=== PATIENT | female | born 1985 | race Caucasian/White ===

== ENCOUNTER 2023-02-24 10:56 | Emergency (ER) | payer BC ==
[~2023-02-24] VITALS: Ht 165 cm; Wt 205.0 kg
--- NOTE | 2023-02-24 11:13 | ED Fall/Injury ---
General Stated Complaint: RT LEG PAIN/FELL Source: patient Exam Limitations: no limitations History of Present Illness Date Seen by Provider: Feb 24, 2023 Time Seen by Provider: 10:59 Initial Comments 37-year-old female with history of congestive heart failure presents to the emergency department today for right leg and left hand pain. She was walking and fell into a manhole that was uncovered. She states her right leg went completely down into it. She denies hitting her head or losing consciousness. She has pain just distal to her right knee and has some problems bearing weight secondary to pain. She also feels like she "jammed" her left ring finger. She is not on any blood thinning medications. No other injuries. All other systems reviewed and negative except documented per HPI. Voice recognition software was used to help create this chart Allergies and Home Medications Allergies Coded Allergies: hydromorphone (Verified Allergy, Unknown, 02/24/23) levofloxacin (Verified Allergy, Unknown, 02/24/23) Patient Home Medication List Home Medication List Reviewed: Yes Cyclobenzaprine HCl (Cyclobenzaprine HCl) 5 Mg Tablet, (Reported) Entered as Reported by: HAILE MEJIA on 02/24/231125 Last Action: New Order Escitalopram Oxalate (Escitalopram Oxalate) 20 Mg Tablet, (Reported) Entered as Reported by: HAILE MEJIA on 02/24/231125 Last Action: New Order Metoprolol Succinate (Metoprolol Succinate) 100 Mg Tab.er.24h, (Reported) Entered as Reported by: HAILE MEJIA on 02/24/231125 Last Action: New Order Sacubitril/Valsartan (Entresto 49 mg-51 mg Tablet) 49 Mg-51 Mg Tablet, (Reported) Entered as Reported by: HAILE MEJIA on 02/24/231125 Last Action: New Order Spironolactone (Spironolactone) 25 Mg Tablet, (Reported) Entered as Reported by: HAILE MEJIA on 02/24/231125 Last Action: New Order Torsemide (Torsemide) 20 Mg Tablet, (Reported) Entered as Reported by: HAILE MEJIA on 02/24/231125 Last Action: New Order Review of Systems Review of Systems Constitutional: see HPI Past Ztpmoqh-Owoapc-Atoxkg Hx Patient Social History Tobacco Use?: No Use of E-Cig and/or Vaping dev: No Substance use?: No Alcohol Use?: No Physical Exam Vital Signs Vital Signs - First Documented 02/24/23 11:18 Temp 36.6 Pulse 118 Resp 16 B/P (MAP) 118/73 (88) Pulse Ox 95 Capillary Refill : Height, Weight, BMI Height: '" Weight: lbs. oz. kg; BMI Method: General Appearance: WD/WN, no apparent distress Neck: non-tender, supple Cardiovascular: regular rate, rhythm, no murmur Respiratory: chest non-tender, lungs clear, normal breath sounds, no respiratory distress, no accessory muscle use Gastrointestinal: normal bowel sounds, non tender, soft, no organomegaly Back: normal inspection, no vertebral tenderness Extremities: other (Tenderness palpation of proximal fibula on the right side. No obvious deformity. Neurovascular and sensory intact distally with no pain distally. Knee joint is stable with no tenderness. She has some tenderness and mild swelling proximal portion of the left ring finger. No obvious deformity. Neurovascular and sensory intact.) Skin: normal color, warm/dry Progress/Results/Core Measures Results/Orders My Orders Orders - JOSE MCDANIEL DO Tibia/Fibula, Right, 2 Views (02/24/23 11:10) Hand, Left, 3 Views (02/24/23 11:10) Vital Signs/I&O 02/24/23 11:18 Temp 36.6 Pulse 118 Resp 16 B/P (MAP) 118/73 (88) Pulse Ox 95 Departure Communication (Admissions) X-rays negative on my independent review and confirmation by radiology. She is neurovascular and sensory intact. She given p.o. Tylenol, prescription for crutches and discharged in stable condition. Impression Primary Impression: Fall Qualified Codes: W19.XXXA - Unspecified fall, initial encounter Additional Impressions: Right leg pain Left hand pain Disposition: 01 HOME, SELF-CARE Condition: Stable Departure-Patient Inst. Referrals: LUDY WHITT MD (PCP/Family) Primary Care Physician Patient Instructions: Sprain (DC) Add. Discharge Instructions: As discussed your x-rays are negative. Use the crutches as needed but I encourage you to bear weight as tolerated. Use ibuprofen and Tylenol alternating for pain. Return to the emergency department for any severe concerns. JOSE MCDANIEL DO Feb 24, 2023 11:13
[2023-02-24] MEDS ORDERED: SACU1TAB7 (11:26)
[2023-02-24] MEDS ORDERED: SPIR25TA5 (11:26)
[2023-02-24] MEDS ORDERED: ESCI20TA39 (11:26)
[2023-02-24] MEDS ORDERED: TORS20TA3 (11:26)
[2023-02-24] MEDS ORDERED: CYCL5TAB (11:26)
[2023-02-24] MEDS ORDERED: MTP100TCR (11:26)
--- NOTE | 2023-02-24 12:06 | Diagnostic Imaging Report ---
CLINICAL HISTORY: Right leg pain. Fall. COMPARISON: None. TECHNIQUE: Four views of the right tibia and fibula. FINDINGS: There is no acute fracture or dislocation of the right tibia and fibula. Alignment is anatomic. The imaged joint spaces are preserved. No focal osseous lesions are seen. IMPRESSION: No acute fracture or dislocation in the right tibia and fibula. Dictated by: Dictated on workstation # [id number]
--- NOTE | 2023-02-24 12:09 | Diagnostic Imaging Report ---
CLINICAL HISTORY: Left hand pain. Fall. COMPARISON: None. TECHNIQUE: 3 views of the left hand. FINDINGS: There is no acute fracture or dislocation of the left hand. Alignment is anatomic. The imaged joint spaces are preserved. No focal osseous lesions. IMPRESSION: No acute fracture or dislocation in the left hand. Dictated by: Dictated on workstation # [id number]
[2023-02-24] MEDS ORDERED: ACETAMINOPHEN 500 MG TABLET PO ONE (12:30)
[2023-02-24 12:35] VITALS: BP 118/73
== END 2023-02-24 12:35 | disposition home or self-care (01) ==
LOC: ER 11:01
DX: M79.661 Pain in right lower leg (principal); M79.645 Pain in left finger(s); W17.2XXA Fall into hole, initial encounter; Y93.01 Activity, walking, marching and hiking
CPT/HCPCS: 73130; 73590